=== PATIENT | female | born 1980 | race African-American/Black ===

== ENCOUNTER 2017-07-22 00:36 | Emergency (ER) | payer SELFPAY | END 2017-07-22 01:15 | disposition home or self-care (01) | LOC: D.ER 00:36 | DX: R10.9 Unspecified abdominal pain (principal); V49.9XXA Car occupant (driver) (passenger) injured in unspecified traffic accident, initial encounter; Y93.89 Activity, other specified; Y92.410 Unspecified street and highway as the place of occurrence of the external cause ==